=== PATIENT | female | born 1935 | race Caucasian/White ===

== ENCOUNTER 2024-08-27 16:26 | Emergency (ER) | payer MEDICARE ==
[~2024-08-27] VITALS: Ht 167.6 cm; Wt 86.2 kg
[~2024-08-27 16:26] MED LIST: CEFDINIR300 MG PO; OXYBUTYNIN CHLOR5 M1 PO
[2024-08-27 17:14] LABS: BASOPHILS # (AUTO) 0.1 (0.0-0.1); BASOPHILS % 0.6 % (0.0-1.0); EOSINOPHILS # (AUTO) 0.1 (0.0-0.4); EOSINOPHILS % 1.2 % (0.0-6.0); HEMATOCRIT 39.7 % (34.2-44.1); LYMPHOCYTES # (AUTO) 2.1 (1.0-3.2); LYMPHOCYTES % 23.7 % (18.0-39.1); MEAN CORPUSCULAR HEMOGLOBIN 33.4 pg (28-32); MEAN CORPUSCULAR HGB CONC 35.3 g/dL (31-35); MEAN CORPUSCULAR VOLUME 94.7 fL (81-99); MONOCYTES # (AUTO) 0.6 (0.2-0.8); MONOCYTES % 6.4 % (4.4-11.3); NEUTROPHILS % 67.8 % (38.7-80.0); PLATELET COUNT 259 x10e3/uL (140-360); RED BLOOD COUNT 4.19 x10e6/uL (3.6-5.1); RED CELL DISTRIBUTION WIDTH 13.2 % (11.7-14.4); WHITE BLOOD COUNT 8.87 x10e3/uL (4.8-10.8)
[2024-08-27] MEDS: SODIUM CHLORIDE 0.9% 1000ML 1,000 ML IV STA (18:34)
[2024-08-27 18:52] LABS: INR 1.51; PARTIAL THROMBOPLASTIN TIME 33.6 seconds (23.8-35.5)
[2024-08-27 19:04] VITALS: TEMP 97.7
[2024-08-27 19:46] LABS: CORONAVIRUS COVID-19 AG NEGATIVE (NEGATIVE); INFLUENZA A AG NEGATIVE (NEGATIVE); INFLUENZA B AG NEGATIVE (NEGATIVE)
[2024-08-27 19:47] LABS: ALBUMIN 3.6 g/dL (3.5-5.0); ANION GAP 20.6 mmol/L (8-16); BILIRUBIN,TOTAL 0.6 mg/dL (0.2-1.2); CALCIUM 9.9 mg/dL (8.4-10.2); CREATININE, SERUM 1.56 mg/dL (0.57-1.11); TOTAL PROTEIN 7.3 g/dL (6.5-8.1)
[2024-08-27 19:49] LABS: POTASSIUM 2.6 mmol/L (3.5-5.1)
[2024-08-27 19:53] LABS: TROPONIN I 0.087 ng/mL (0-0.300)
[2024-08-27] MEDS: POTASSIUM CHLORIDE 20MEQ/100ML 100 ML IV STA (20:09)
[2024-08-27] MEDS: POTASSIUM CHLORIDE 20 MEQ TAB CR PO STA (20:11)
[2024-08-27 20:29] LABS: BILIRUBIN,URINE NEGATIVE (NEGATIVE); CLARITY,URINE CLEAR (CLEAR); COLOR,URINE YELLOW (YELLOW); GLUCOSE, URINE NEGATIVE (NEGATIVE); KETONES,URINE NEGATIVE (NEGATIVE); LEUKOCYTE ESTERASE ,URINE SMALL (NEGATIVE); NITRITE,URINE NEGATIVE (NEGATIVE); PH,URINE 7 (5 - 7); PROTEIN,URINE DIPSTICK NEGATIVE (NEGATIVE); URINE UROBILINOGEN 0.2 mg/dL (0.2 - 1)
[2024-08-27 20:34] LABS: BACTERIA,URINE FEW /HPF; EPITHELIAL CELLS,URINE FEW /LPF
[2024-08-27] MEDS: CIPROFLOXACIN 500 MG TAB PO STA (21:13)
[2024-08-27 21:14] VITALS: RESP 17
[2024-08-27 22:00] VITALS: PULSE 71
[2024-08-27 22:34] VITALS: BP 136/63; O2SAT 97
[2024-08-28] MEDS ORDERED: CIPRO500 MG PO (17:49)
== END 2024-08-27 22:36 | disposition home or self-care (01) ==
LOC: ER 18:11
DX: E87.6 Hypokalemia (principal); R62.7 Adult failure to thrive; I10 Essential (primary) hypertension; I50.9 Heart failure, unspecified; E78.5 Hyperlipidemia, unspecified; I48.91 Unspecified atrial fibrillation; E03.9 Hypothyroidism, unspecified; I25.10 Atherosclerotic heart disease of native coronary artery without angina pectoris; G40.909 Epilepsy, unspecified, not intractable, without status epilepticus; Z11.52 Encounter for screening for COVID-19; Z86.73 Personal history of transient ischemic attack (TIA), and cerebral infarction without residual deficits
CPT/HCPCS: 36415; 70450; 71045; 80053; 81001; 82550; 84484; 85025; 85610; 85730; 87086; 87428; 99284; J3480; J7030; 93005

== ENCOUNTER 2024-08-31 10:27 | Inpatient (IN) | payer MEDICARE ==
[~2024-08-31] VITALS: Ht 167.6 cm; Wt 86.4 kg
[~2024-08-31 10:27] MED LIST changes: +CIPRO500 MG PO
[2024-08-31 10:50] VITALS: TEMP 98.2
[2024-08-31 12:15] LABS: BASOPHILS % 0.5 % (0.0-1.0); EOSINOPHILS # (AUTO) 0.2 (0.0-0.4); HEMATOCRIT 35.7 % (34.2-44.1); HEMOGLOBIN 12.3 g/dL (12.0-16.0); LYMPHOCYTES # (AUTO) 2.1 (1.0-3.2); LYMPHOCYTES % 23.7 % (18.0-39.1); MEAN CORPUSCULAR HEMOGLOBIN 33.1 pg (28-32); MEAN CORPUSCULAR HGB CONC 34.5 g/dL (31-35); MONOCYTES # (AUTO) 0.7 (0.2-0.8); MONOCYTES % 7.3 % (4.4-11.3); NEUTROPHILS # (AUTO) 5.9 (2.1-6.9); NEUTROPHILS % 66.3 % (38.7-80.0); PLATELET COUNT 211 x10e3/uL (140-360); RED BLOOD COUNT 3.72 x10e6/uL (3.6-5.1); RED CELL DISTRIBUTION WIDTH 13.6 % (11.7-14.4); WHITE BLOOD COUNT 8.85 x10e3/uL (4.8-10.8)
[2024-08-31] MEDS: SODIUM CHLORIDE 0.9% 1000ML 1,000 ML IV ONE (12:15)
[2024-08-31 12:30] LABS: BILIRUBIN,URINE NEGATIVE (NEGATIVE); CLARITY,URINE CLEAR (CLEAR); COLOR,URINE YELLOW (YELLOW); GLUCOSE, URINE NEGATIVE (NEGATIVE); KETONES,URINE NEGATIVE (NEGATIVE); LEUKOCYTE ESTERASE ,URINE LARGE (NEGATIVE); NITRITE,URINE NEGATIVE (NEGATIVE); PH,URINE 7 (5 - 7); PROTEIN,URINE DIPSTICK NEGATIVE (NEGATIVE); URINE UROBILINOGEN 0.2 mg/dL (0.2 - 1)
[2024-08-31 12:48] LABS: RBC,URINE 0-5 /HPF (0-5); WBC,URINE (MAN) 0-5 /HPF (0-5)
[2024-08-31 12:48] LABS: ALBUMIN 3.5 g/dL (3.5-5.0); ALBUMIN/GLOBULIN RATIO 1.1 (0.8-2.0); ANION GAP 18.4 mmol/L (8-16); BILIRUBIN,TOTAL 0.9 mg/dL (0.2-1.2); CALCIUM 9.7 mg/dL (8.4-10.2); CREATININE, SERUM 1.46 mg/dL (0.57-1.11); TOTAL PROTEIN 6.6 g/dL (6.5-8.1)
[2024-08-31 12:49] LABS: BACTERIA,URINE MODERATE /HPF; EPITHELIAL CELLS,URINE RARE /LPF
[2024-08-31 12:50] LABS: POTASSIUM 2.4 mmol/L (3.5-5.1)
[2024-08-31 12:56] LABS: MAGNESIUM 1.8 MG/DL (1.3-2.1); PHOSPHORUS 2.8 MG/DL (2.3-4.7)
[2024-08-31 13:14] LABS: ETHANOL < 10.0 mg/dL (0.0-10.0)
[2024-08-31] MEDS: KCL 20 MEQ PACKET/ ORAL SOLN PO ONE (13:16)
[2024-08-31] MEDS: POTASSIUM CHLORIDE 20MEQ/100ML 200 ML IV ONE (13:16)
[2024-08-31] MEDS ORDERED: ONDANSETRON HCL INJ 2MG/ML 2ML 2 MG/ML VIAL IV PRN (13:45)
[2024-08-31] MEDS: SODIUM CHLORIDE 0.9% 1000ML 1,000 ML IV SCH (14:12)
[2024-08-31 14:23] VITALS: PULSE 72; RESP 16
[2024-08-31 15:12] VITALS: BP 126/80; PULSE 62; RESP 18; TEMP 97.2; O2SAT 94
[2024-08-31] MEDS ORDERED: ATORVASTATIN CA80 MG PO (15:44)
[2024-08-31] MEDS ORDERED: TORSEMIDE10 MG PO (15:44)
[2024-08-31] MEDS ORDERED: LEVETIRACETAM250 MG PO (15:44)
[2024-08-31] MEDS ORDERED: ELIQUIS5 MG PO (15:44)
[2024-08-31] MEDS ORDERED: MECLIZINE HCL25 MG PO (15:44)
[2024-08-31] MEDS ORDERED: METOPROLOL SUCC25 MG PO (15:44)
[2024-08-31] MEDS ORDERED: B12 ACTIVE1000 MCG PO (15:47)
[2024-08-31] MEDS ORDERED: MULTI-VITAMIN1 EACH PO (15:47)
[2024-08-31] MEDS ORDERED: FOLIC ACID0.4 MG PO (15:47)
[2024-08-31 20:00] VITALS: BP 110/52; PULSE 68; RESP 18; TEMP 98.2; O2SAT 98
[2024-08-31] MEDS ORDERED: NON-FORMULARY MEDICATION (Meclizine Hcl 25 MG) PO PRN (20:00)
[2024-08-31] MEDS ORDERED: MAGNESIUM/ALUMINUM/SIMETHICONE 30 ML UDC PO PRN (20:00)
[2024-08-31 21:00] VITALS: BP 110/52; PULSE 68; RESP 18; TEMP 98.2; O2SAT 98
[2024-08-31] MEDS: APIXABAN 5 MG TABLET PO SCH (21:57)
[2024-08-31] MEDS: ATORVASTATIN 40 MG TAB PO SCH (21:59)
[2024-08-31] MEDS: LEVETIRACETAM 500 MG TAB PO SCH (21:59)
[2024-08-31] MEDS: MAGNESIUM SULFATE 2GM/50ML 50 ML IV ONE (21:59)
[2024-08-31] MEDS: MAGNESIUM/ALUMINUM/SIMETHICONE 30 ML UDC PO ONE (21:59)
[2024-08-31] MEDS: KCL 20MEQ/.9 SOD CHL 1,000 ML IV SCH (22:01)
[2024-08-31] MEDS ORDERED: POTASSIUM PHOSPHATE 30 MM in SODIUM CHLORIDE 0.9% 250ML 250 ML IV ONE (23:00)
[2024-09-01] VITALS (8 sets, daily range): BP systolic 100–122; BP diastolic 50–99; PULSE 61–91; RESP 14–18; TEMP 97.5–98.3; O2SAT 95–100
[2024-09-01] MEDS ORDERED: MECLIZINE HCL 12.5 MG TAB PO PRN (01:15)
[2024-09-01] MEDS: POTASSIUM PHOSPHATE 30 MM in SODIUM CHLORIDE 0.9% 500ML 500 ML IV ONE (01:42)
[2024-09-01 07:14] LABS: BASOPHILS % 0.4 % (0.0-1.0); EOSINOPHILS # (AUTO) 0.2 (0.0-0.4); EOSINOPHILS % 1.6 % (0.0-6.0); HEMATOCRIT 32.7 % (34.2-44.1); HEMOGLOBIN 11.1 g/dL (12.0-16.0); LYMPHOCYTES # (AUTO) 1.8 (1.0-3.2); MEAN CORPUSCULAR HEMOGLOBIN 33.9 pg (28-32); MEAN CORPUSCULAR HGB CONC 33.9 g/dL (31-35); MONOCYTES # (AUTO) 0.6 (0.2-0.8); MONOCYTES % 6.2 % (4.4-11.3); NEUTROPHILS # (AUTO) 7.4 (2.1-6.9); NEUTROPHILS % 73.4 % (38.7-80.0); PLATELET COUNT 194 x10e3/uL (140-360); RED BLOOD COUNT 3.27 x10e6/uL (3.6-5.1); RED CELL DISTRIBUTION WIDTH 13.6 % (11.7-14.4); WHITE BLOOD COUNT 10.06 x10e3/uL (4.8-10.8)
[2024-09-01 07:47] LABS: ALBUMIN 2.8 g/dL (3.5-5.0); ANION GAP 12.1 mmol/L (8-16); BILIRUBIN,TOTAL 0.7 mg/dL (0.2-1.2); CALCIUM 8.3 mg/dL (8.4-10.2); CREATININE, SERUM 0.92 mg/dL (0.57-1.11); TOTAL PROTEIN 5.6 g/dL (6.5-8.1)
[2024-09-01 07:54] LABS: POTASSIUM 3.1 mmol/L (3.5-5.1)
[2024-09-01 08:02] LABS: MAGNESIUM 2.3 MG/DL (1.3-2.1); PHOSPHORUS 3.3 MG/DL (2.3-4.7)
[2024-09-01] MEDS ORDERED: FOLIC ACID 800 MCG PO SCH (09:00)
[2024-09-01] MEDS: METOPROLOL SUCCINATE 25 MG TAB XL PO SCH (10:17)
[2024-09-01] MEDS: CYANOCOBALAMIN 1,000 MCG TAB PO SCH (10:18)
[2024-09-01] MEDS: FOLIC ACID 1 MG TAB PO SCH (10:19)
[2024-09-01] MEDS: POTASSIUM CHLORIDE 10MEQ EA PO SCH (10:19)
[2024-09-02] VITALS: BP 132/57; PULSE 63; RESP 18; TEMP 97.9; O2SAT 100
[2024-09-02 04:00] VITALS: BP 142/61; PULSE 69; RESP 20; TEMP 97.7; O2SAT 100
[2024-09-02 06:28] LABS: CALCIUM 8.9 mg/dL (8.4-10.2); CREATININE, SERUM 0.84 mg/dL (0.57-1.11)
[2024-09-02 08:26] VITALS: BP 136/55; PULSE 66; RESP 19; TEMP 97.9; O2SAT 95
[2024-09-02 08:35] VITALS: BP 136/55; PULSE 66; RESP 19; TEMP 97.9; O2SAT 95
[2024-09-02 11:25] VITALS: BP 133/64; PULSE 67; RESP 18; TEMP 98.6; O2SAT 100
== END 2024-09-02 14:06 | disposition home or self-care (01) | DRG 682 ==
LOC: ER 11:20 → ERHOLD 13:34 → MED/SURG2 14:45 → OBSVTOIN 19:53
PROVIDERS: ADMIT Internal Medicine; ATTEND Internal Medicine
DX: N17.9 Acute kidney failure, unspecified (principal); G93.41 Metabolic encephalopathy; N39.0 Urinary tract infection, site not specified; I50.22 Chronic systolic (congestive) heart failure; E87.6 Hypokalemia; I11.0 Hypertensive heart disease with heart failure; E86.0 Dehydration; R19.7 Diarrhea, unspecified; T50.2X5A Adverse effect of carbonic-anhydrase inhibitors, benzothiadiazides and other diuretics, initial encounter; Y92.009 Unspecified place in unspecified non-institutional (private) residence as the place of occurrence of the external cause; E83.42 Hypomagnesemia; R33.9 Retention of urine, unspecified; G40.909 Epilepsy, unspecified, not intractable, without status epilepticus; E78.5 Hyperlipidemia, unspecified; I48.91 Unspecified atrial fibrillation; Z79.01 Long term (current) use of anticoagulants; E03.9 Hypothyroidism, unspecified; I25.2 Old myocardial infarction; Z86.73 Personal history of transient ischemic attack (TIA), and cerebral infarction without residual deficits; Z79.899 Other long term (current) drug therapy; Z88.0 Allergy status to penicillin; Z88.2 Allergy status to sulfonamides
CPT/HCPCS: 36415; 70450; 80048; 80053; 80320; 81001; 83735; 84100; 84132; 85025; 93005; 99252; 99284; J0696; J2470; J3475; J3480; J7030; J7040; J7050